=== PATIENT | male | born 1965 | race Caucasian/White ===

== ENCOUNTER 2016-07-05 05:34 | Emergency (ER) | payer OTHER ==
[~2016-07-05] VITALS: Ht 185.4 cm; Wt 86.2 kg
--- NOTE | ~2016-07-05 | EKG ---
[facility] [place] [address] ELECTROCARDIOGRAM REPORT Name: GARFIELD ORACH Room #: REG Lisa#: [id number] Admission: 07/05/16 Attend Phys: Discharge: Date of : 67 Report #: [id number] THIS REPORT FOR: //name// [facility] ED Test Date: 2016-07-05 Test Time: 05:32:08 Pat Name: GARFIELD ROACH Department: Room: Gender: M Artist Model: [id number] : 1965 Requested By: Yoselin Ahuja Order Number: [id number] MD: Jair Mas Measurements Intervals [place] Rate: 75 P: -23 TX: 203 QRS: 35 QRSD: 104 T: -20 QT: 401 QTc: 448 Interpretive Statements Sinus rhythm Borderline prolonged [place] interval RSR' in V1 or V2, right VCD or RVH Borderline T abnormalities, inferior leads Compared to ECG 05/07/2016 13:00:13 No significant change was found Electronically Signed On 07-05-2016 7:15:03 CDT by Jair Mas [email or web address] <ELECTRONICALLY SIGNED> By: Jair Mas MD, [facility] 07/05/16 0715 0532 Jair Mas MD, [facility] /EPI
[2016-07-05] MEDS ORDERED: [UNRECOGNIZED DRUG - REMARK] PO (05:38)
[2016-07-05] MEDS ORDERED: WELLBUTRIN SR150 MG PO (05:38)
[2016-07-05] MEDS ORDERED: STRATTERA100 MG PO (05:39)
[2016-07-05 06:07] LABS: ABSOLUTE NEUTROPHILS 4.9 thou/uL (1.4-8.2); BASOPHILS 0.9 % (0.0-2.0); EOSINOPHILS 2.3 % (0.0-3.0); HEMOGLOBIN 15.3 gm/dL (14.0-18.0); LYMPHOCYTES 18.7 % (24.0-44.0); MCH 33.7 pg (26.0-34.0); MCHC 36.3 g/dL (28.0-37.0); MCV 92.8 fL (80.0-100.0); MONOCYTES 6.5 % (1.0-8.0); PLATELET COUNT 261 thou/uL (150-400); POLYS 71.6 % (36.0-66.0); RBC 4.52 mil/uL (4.50-6.00); RDW 12.9 % (10.5-14.5); WBC 6.9 thou/uL (4.0-11.0)
[2016-07-05 06:10] LABS: ANION GAP 11 mmol/L (7-16); BUN 13 mg/dL (7-18); CALCIUM 8.5 mg/dL (8.5-10.1); CHLORIDE 106 mmol/L (98-107); CO2 26 mmol/L (21-32); CREATININE 1.2 mg/dL (0.7-1.3); GLUCOSE 107 mg/dL (74-106); MANUAL DIFF NO; POTASSIUM 3.7 mmol/L (3.5-5.1); SODIUM 143 mmol/L (136-145)
[2016-07-05 06:19] LABS: TROPONIN-I < 0.04 ng/mL (<0.04-0.07)
[2016-07-05 06:55] VITALS: BP 146/102
== END 2016-07-05 07:34 | disposition home or self-care (01) ==
LOC: ER 05:34
PROVIDERS: Emergency Medicine
DX: R07.9 Chest pain, unspecified (principal); F15.10 Other stimulant abuse, uncomplicated; F32.9 Major depressive disorder, single episode, unspecified; F90.9 Attention-deficit hyperactivity disorder, unspecified type; F17.210 Nicotine dependence, cigarettes, uncomplicated

== ENCOUNTER 2017-08-14 23:13 | Emergency (ER) | payer OTHER ==
[~2017-08-14] VITALS: Ht 185.4 cm; Wt 86.2 kg
[~2017-08-14 23:13] MED LIST: STRATTERA100 MG PO; WELLBUTRIN SR150 MG PO; [UNRECOGNIZED DRUG - REMARK] PO
[2017-08-15 00:07] VITALS: BP 143/98
== END 2017-08-15 00:09 | disposition home or self-care (01) ==
LOC: ER 23:13
DX: T18.3XXA Foreign body in small intestine, initial encounter (principal); F17.210 Nicotine dependence, cigarettes, uncomplicated; F32.9 Major depressive disorder, single episode, unspecified; X58.XXXA Exposure to other specified factors, initial encounter; Y93.89 Activity, other specified; Y92.89 Other specified places as the place of occurrence of the external cause; Y99.8 Other external cause status

== ENCOUNTER 2018-09-19 03:01 | Emergency (ER) | payer OTHER ==
[~2018-09-19] VITALS: Ht 185.4 cm; Wt 86.2 kg
[2018-09-19 03:40] LABS: ABSOLUTE NEUTROPHILS 4.8 thou/uL (1.4-8.2); BASOPHILS 1.4 % (0.0-2.0); EOSINOPHILS 3.3 % (0.0-3.0); HEMATOCRIT 43.8 % (42.0-52.0); HEMOGLOBIN 15.2 gm/dL (14.0-18.0); MCH 32.8 pg (26.0-34.0); MCHC 34.8 g/dL (28.0-37.0); MCV 94.2 fL (80.0-100.0); MONOCYTES 6.6 % (1.0-8.0); PLATELET COUNT 252 thou/uL (150-400); POLYS 57.7 % (36.0-66.0); RBC 4.65 mil/uL (4.50-6.00); RDW 12.4 % (10.5-14.5); WBC 8.3 thou/uL (4.0-11.0)
[2018-09-19 03:50] LABS: ANION GAP 10 mmol/L (7-16); BUN 21 mg/dL (7-18); CHLORIDE 106 mmol/L (98-107); CO2 28 mmol/L (21-32); CREATININE 1.6 mg/dL (0.7-1.3); GLUCOSE 108 mg/dL (74-106); SODIUM 144 mmol/L (136-145)
[2018-09-19 04:01] LABS: ALBUMIN 3.4 g/dL (3.4-5.0); MAGNESIUM 2.1 mg/dL (1.8-2.4); SGOT 13 U/L (15-37); SGPT 22 U/L (30-65); TOTAL BILIRUBIN 0.3 mg/dL (<0.1-1.0); TOTAL PROTEIN 6.7 g/dL (6.4-8.2); TROPONIN-I <0.06 ng/mL (<0.06)
[2018-09-19 04:02] VITALS: BP 158/90
--- NOTE | 2018-09-20 07:43 | EKG ---
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 : 1965 Requested By: Regino Loving Order Number: [id number] MD: Jair Mas Measurements Intervals [place] Rate: 59 P: -11 PA: 217 QRS: 13 QRSD: 89 T: -18 QT: 399 QTc: 396 Interpretive Statements Sinus rhythm Prolonged PA interval Early R-wave progression Nonspecific T abnormalities, inferior leads Compared to ECG 07/05/2016 05:32:08 No significant change was found Electronically Signed On 09-20-2018 7:43:22 CDT by Jair Mas [email or web address] ��������������������������������������������� <ELECTRONICALLY SIGNED> ���������������������������������������� By: Jair Mas MD, [facility] ��������������������������������������������� 09/20/18 0743 2 2 Jair Mas MD, [facility] /EPI
== END 2018-09-19 04:10 | disposition home or self-care (01) ==
LOC: ER 03:01
PROVIDERS: Emergency Medicine
DX: R07.89 Other chest pain (principal); I10 Essential (primary) hypertension; F32.9 Major depressive disorder, single episode, unspecified; F90.0 Attention-deficit hyperactivity disorder, predominantly inattentive type; F17.210 Nicotine dependence, cigarettes, uncomplicated; Z85.820 Personal history of malignant melanoma of skin